=== PATIENT | male | born 1965 | race Caucasian/White ===

== ENCOUNTER 2017-09-17 21:45 | Emergency (ER) | payer SELFPAY ==
[~2017-09-17] VITALS: Ht 177.8 cm; Wt 83.5 kg
[2017-09-17 21:49] VITALS: BP 173/111
== END 2017-09-17 23:41 | disposition left against medical advice (07) ==
LOC: EME 21:45
DX: R55 Syncope and collapse (principal); Z53.21 Procedure and treatment not carried out due to patient leaving prior to being seen by health care provider